=== PATIENT | male | born 1945 | race Caucasian/White ===

== ENCOUNTER 2021-03-24 12:53 | Emergency (ER) | payer OTHER ==
[~2021-03-24 12:53] MED LIST: ASPIRIN CHEWABL81 MG PO; LOPRESSOR25 MG PO
== END 2021-03-24 14:31 | disposition home or self-care (01) ==
LOC: FER 12:53
DX: I83.891 Varicose veins of right lower extremity with other complications (principal); I10 Essential (primary) hypertension; Z87.891 Personal history of nicotine dependence
CPT/HCPCS: 99283

== ENCOUNTER 2021-07-17 10:57 | Inpatient (IN) | payer OTHER ==
[~2021-07-17] VITALS: Ht 181.6 cm; Wt 114.0 kg
[2021-07-17 11:56] LABS: ALBUMIN 3.9 g/dL (3.4-5.0); BILIRUBIN - TOTAL 0.4 mg/dL (0.2-1.0); BUN/CREAT RATIO (CALC) 12.5 RATIO; CREATININE 0.72 mg/dL (0.67-1.17); GLOBULIN (CALCULATION) 3.1 g/dL; POTASSIUM 3.4 mmol/L (3.5-5.1)
[2021-07-17 12:03] LABS: CKMB 5.8 ng/mL (0.0-3.6)
[2021-07-17 12:06] LABS: BASOPHIL 0.5 % (0-2); EOSINOPHIL 0.9 % (0-7); HCT 42.8 % (42.0-52.0); HGB 14.2 g/dl (13.2-18.0); LYMPHOCYTE 16.3 % (15-48); MCH 29.4 pg (25.0-31.0); MCHC 33.2 g/dL (32.0-36.0); MCV 88.6 fL (78.0-100.0); MONOCYTE 5.3 % (0-12); MPV 10.2 fL (6.0-9.5); NEUTROPHIL 74.9 % (41-80); NRBC 0; PLT 238 K/uL (150-400); RBC 4.83 M/uL (4.70-6.00); RDW 12.7 % (11.5-14.0); WBC 14.1 K/uL (4.0-10.5)
[2021-07-17 16:28] LABS: CORONAVIRUS 2019 SARS-COV-2 NEGATIVE (NEGATIVE); INFLUENZA A NAA NEGATIVE (NEGATIVE)
[2021-07-17] MEDS ORDERED: LIPITOR40 MG PO (17:47)
[2021-07-17] MEDS ORDERED: D3-501250 MCG PO (17:48)
[2021-07-17] MEDS ORDERED: MELATONIN5 M2 PO (17:49)
[2021-07-17] MEDS ORDERED: NITROQUIK SL0.4 MG SL (17:50)
[2021-07-17] MEDS ORDERED: TOPROL XL 50 MG50 MG PO (17:50)
[2021-07-17] MEDS ORDERED: TRAZODONE HCL150 MG PO (17:51)
[2021-07-17] MEDS ORDERED: LISINOPRIL40 MG PO (17:52)
[2021-07-17] MEDS ORDERED: ELIQUIS5 MG PO (17:52)
[2021-07-17] MEDS ORDERED: VITAMIN B-121000 MC1 PO (17:53)
[2021-07-17] MEDS ORDERED: HCTZ25 MG PO (17:54)
[2021-07-17] MEDS ORDERED: ADALAT CC90 MG PO (17:55)
[2021-07-17] MEDS ORDERED: FENOFIBRATE145 MG PO (17:55)
[2021-07-17] MEDS ORDERED: GABAPENTIN600 MG PO (17:56)
[2021-07-17 23:07] LABS: BILIRUBIN NEGATIVE (NEGATIVE); BLOOD 1+ Ery/uL (NEGATIVE); CLARITY CLEAR (CLEAR); COLOR YELLOW (YELLOW); GLUCOSE (U) NORMAL (NORMAL); LEUKOCYTES NEGATIVE Leu/uL (NEGATIVE); NITRITE NEGATIVE (NEGATIVE); PROTEIN 1+ mg/dL (NEGATIVE); UROBILINOGEN 0.2 mg/dL (0.2-1.0)
[2021-07-17 23:25] LABS: BACTERIA TRACE; URINARY WBC RARE
[2021-07-17 23:26] LABS: MUCOUS TRACE
[2021-07-18 06:05] LABS: BASOPHIL 0.2 % (0-2); EOSINOPHIL 0.9 % (0-7); HCT 35.9 % (42.0-52.0); HGB 11.9 g/dl (13.2-18.0); LYMPHOCYTE 11.2 % (15-48); MCH 29.7 pg (25.0-31.0); MCHC 33.1 g/dL (32.0-36.0); MCV 89.5 fL (78.0-100.0); MONOCYTE 9.9 % (0-12); MPV 9.8 fL (6.0-9.5); NEUTROPHIL 77.4 % (41-80); NRBC 0; PLT 191 K/uL (150-400); RBC 4.01 M/uL (4.70-6.00); RDW 12.7 % (11.5-14.0); WBC 11.7 K/uL (4.0-10.5)
[2021-07-18 07:51] LABS: ALBUMIN 3.1 g/dL (3.4-5.0); BILIRUBIN - TOTAL 0.5 mg/dL (0.2-1.0); BUN/CREAT RATIO (CALC) 15.2 RATIO; CREATININE 0.79 mg/dL (0.67-1.17); GLOBULIN (CALCULATION) 2.7 g/dL; POTASSIUM 3.7 mmol/L (3.5-5.1); TOTAL PROTEIN 5.8 g/dL (6.4-8.2)
--- NOTE | 2021-07-18 12:05 | NUR ---
07/18/21 Patient will be transferred to [facility].
--- NOTE | 2021-07-18 14:58 | NUR ---
REPORT GIVEN TO ODELL BANGURA AT [facility] AT 1254. PT IS GOING TO ROOM 815. EMS ARRIVE FOR TRANSPORT AT 1450. PT STATED HE HAS ALL BELONGINGS WITH HIM.
--- NOTE | 2021-07-18 15:06 | NUR ---
WAS GIVEN NORCO 5 AND 20 MG LISINOPRIL TO TREAT BACK PAIN AND HTN OF 180/78 BEFORE TRANSFER WITH EMS AT 1436. SEE EMAR.
== END 2021-07-18 14:53 | disposition other institution (70) | DRG 281 ==
LOC: FER 10:57 → FMS 15:29 → FTCU 23:59
PROVIDERS: Emergency Medicine; Family Medicine; ADMIT Allergy & Immunology
DX: I16.1 Hypertensive emergency (principal); I21.A1 Myocardial infarction type 2; I67.4 Hypertensive encephalopathy; M54.50 Low back pain, unspecified; Z20.822 Contact with and (suspected) exposure to COVID-19; E11.65 Type 2 diabetes mellitus with hyperglycemia; I10 Essential (primary) hypertension; I25.10 Atherosclerotic heart disease of native coronary artery without angina pectoris; I49.5 Sick sinus syndrome; S60.212A Contusion of left wrist, initial encounter; S60.211A Contusion of right wrist, initial encounter; E66.9 Obesity, unspecified; E78.5 Hyperlipidemia, unspecified; Z91.14 Patient's other noncompliance with medication regimen; Z68.34 Body mass index [BMI] 34.0-34.9, adult; Z95.5 Presence of coronary angioplasty implant and graft; Z86.73 Personal history of transient ischemic attack (TIA), and cerebral infarction without residual deficits; Z78.1 Physical restraint status; Z98.890 Other specified postprocedural states; Z79.82 Long term (current) use of aspirin; Z79.01 Long term (current) use of anticoagulants; Z79.899 Other long term (current) drug therapy; Z87.891 Personal history of nicotine dependence
CPT/HCPCS: 36415; 70450; 70551; 71045; 72131; 73600; 80053; 81001; 82553; 83036; 83735; 83880; 84484; 85025; 93005; G0378; J1650; J1885; J2270; J2405; U0002